=== PATIENT | male | born 1960 | race Caucasian/White ===

== ENCOUNTER 2018-02-17 17:55 | Outpatient (CLI) ==
[2018-02-17 18:21] VITALS: BMI 36.3
== END 2018-02-17 17:56 | disposition home or self-care (01) ==
LOC: AMBL 17:55
PROVIDERS: ATTEND Internal Medicine
DX: T50.905A Adverse effect of unspecified drugs, medicaments and biological substances, initial encounter (principal); M79.605 Pain in left leg; M79.604 Pain in right leg; R07.9 Chest pain, unspecified; F41.9 Anxiety disorder, unspecified; F32.9 Major depressive disorder, single episode, unspecified; G25.81 Restless legs syndrome

== ENCOUNTER 2018-02-17 18:08 | Emergency (ER) ==
--- NOTE | 2018-02-17 18:18 | ED.PDOC ---
General ED Provider: Dr. 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 very upset) Exam Limitations: No limitations Nursing and Triage Documentation Reviewed and Agree: Yes Does patient meet sepsis criteria?: No System Inflammatory Response Syndrome: Not Applicable Sepsis Protocol: For patient's 13 years and over: Temp is 96.8 and below OR 101 and greater Pulse >90 BPM Resp >20/minute Acutely Altered Mental Status Are patient's symptoms suggestive of a new infection, such as: -Pneumonia -Skin, Soft Tissue -Endocarditis -UTI -Bone, Joint Infection -Implantable Device -Acute Abdominal Infection -Wound Infection -Meningitis -Blood Stream Catheter Infection -Unknown Psychological Complaint Exam - Psychiatric Complaint/Exam Patient Complains Of: Present: Depression, Other (the pt has lost his business and is presently homeless as of today). Absent: Suicidal thoughts, Suicidal gestures Onset/Duration: today ,took 2,50mg seraquil [id number](1) [id number](1) motrin 800mg one Symptoms Are: Still present Timing: Constant Episodes Lasting: Minutes Initial Severity: Moderate (he was residing in the [facility]) Current Severity: Mild Character: Present: Depressed, Fearful, Anxious. Absent: Angry, Frustrated Aggravating: Reports: Recent stress (see above). Denies: Alcohol use, Drug use , Medication noncompliance Associated Signs And Symptoms: Reports: Sleep disturbance, Appetite change. Denies: Hostile, Confused, Hallucinating, Paranoid behavior Related History: Reports: Recent stressors (see above). Denies: Suicidal thoughts, Suicidal plan, Suicidal gestures, Homicidal thoughts, Homicidal plan, Homicidal gestures, Prior attempts Completed Suicide Risk Factors: Male, , Unemployed Patient Accompanied By: Family Patient In Custody Of Police: No Social Withdrawal Present: No Social Isolation Present: No Prior Suicide Attempt: No Injury From Prior Suicide Attempt: No Related Surgical History: Reports: None Patient Uncooperative For Exam: No Mood: Present: Depressed, Anxious. Absent: Angry, Guarded, Paranoid, Hallucinating, Manic, Agitated, Hearing voices Appearance: Present: Clean Thought Process: Present: Logical Insight: Present: Good Memory: Intact Judgement: Normal Danger To Others: No Patient Medically Stable For: Psych evaluation Differential Diagnoses: Anxiety, Depression Review of Systems - Review Of Systems Constitutional: Reports: No symptoms Eyes: Reports: No symptoms Ears, Nose, Mouth, Throat: Reports: No symptoms Respiratory: Reports: No symptoms Cardiac: Reports: No symptoms GI: Reports: No symptoms : Reports: No symptoms Musculoskeletal: Reports: No symptoms Skin: Reports: No symptoms Neurological: Reports: Anxiety, Depressed, Emotional problems Endocrine: Reports: No symptoms Hematologic/Lymphatic: Reports: No symptoms All Other Systems: Reviewed and Negative Past Medical History - Past Medical History Previously Healthy: Yes Endocrine: Reports: None Cardiovascular: Reports: None Respiratory: Reports: None Hematological: Reports: None Gastrointestinal: Reports: None Genitourinary: Reports: None Neuro/Psych: Reports: None Musculoskeletal: Reports: None Cancer: Reports: None - Surgical History General Surgical History: Reports: None - Family History Family History: Reports: None Physical Exam - Physical Exam Appearance: Well-appearing, No pain distress, Well-nourished Eyes: CIARAN, EOMI, Conjunctiva clear ENT: Ears normal, Nose normal, Oropharynx normal Respiratory: Airway patent, Breath sounds clear, Breath sounds equal, Respirations nonlabored Cardiovascular: RRR, Pulses normal, No rub, No murmur GI/: Soft, Nontender, No masses, Bowel sounds normal, No Organomegaly Musculoskeletal: Normal strength, ROM intact, No edema, No calf tenderness Skin: Warm, Dry, Normal color Neurological: Sensation intact, Motor intact, Reflexes intact, Cranial nerves intact, Alert, Oriented Psychiatric: Affect appropriate, Mood appropriate Physician Notification - Case Discussed Physician Notified: ethan Time of Notification: 19:00 Admit To: Inpatient Critical Care Note - Critical Care Note Total Time (mins): 0 Course - Course Hematology/Chemistry: 02/17/18 18:24 02/17/18 18:24 Orders, Labs, Meds: Lab Review 02/17/18 02/17/18 02/17/18 18:24 18:24 18:35 WBC 6.84 RBC 4.27 L Hgb 12.7 L Hct 36.6 L MCV 85.7 MCH 29.7 MCHC 34.7 RDW Coeff of Lady 13.2 Plt Count 206 Immature Gran % (Auto) 0.4 Neut % (Auto) 49.0 Lymph % (Auto) 38.3 [place] % (Auto) 9.5 Eos % (Auto) 2.2 Baso % (Auto) 0.6 Immature Gran # (Auto) 0.0 Neut # (Auto) 3.4 Lymph # (Auto) 2.6 [place] # (Auto) 0.7 Eos # (Auto) 0.2 Baso # (Auto) 0.0 Sodium 142 Potassium 3.7 Chloride 109 H Carbon Dioxide 22 Anion Gap 14.7 BUN 26 H Creatinine 1.15 H Estimated GFR (MDRD) 65.00 BUN/Creatinine Ratio 22.60 Glucose 184 H Calcium 8.7 Total Bilirubin 0.2 AST 18 ALT 30 Alkaline Phosphatase 75 Total Protein 6.9 Albumin 3.6 Globulin 3.3 Albumin/Globulin Ratio 1.09 Urine Color Urine Clarity Urine pH Ur Specific [place] Urine Protein Urine Glucose (UA) Urine Ketones Urine Blood Urine Nitrite Urine Bilirubin Urine Urobilinogen Ur Leukocyte Esterase Salicylate Level mg/dL < 5.0 Urine Opiates Screen Negative Ur Oxycodone Screen Negative Urine Methadone Screen Negative Ur Propoxyphene Screen Negative Acetaminophen < 3 L Ur Barbiturates Screen Negative U Tricyclic Antidepress Positive Ur Phencyclidine Scrn Negative Ur Amphetamine Screen Negative U Methamphetamines Scrn Negative U Benzodiazepines Scrn Negative Urine Cocaine Screen Negative U Cannabinoids Screen Negative Plasma/Serum Alcohol < 10.0 02/17/18 18:35 WBC RBC Hgb Hct MCV MCH MCHC RDW Coeff of Lady Plt Count Immature Gran % (Auto) Neut % (Auto) Lymph % (Auto) [place] % (Auto) Eos % (Auto) Baso % (Auto) Immature Gran # (Auto) Neut # (Auto) Lymph # (Auto) [place] # (Auto) Eos # (Auto) Baso # (Auto) Sodium Potassium Chloride Carbon Dioxide Anion Gap BUN Creatinine Estimated GFR (MDRD) BUN/Creatinine Ratio Glucose Calcium Total Bilirubin AST ALT Alkaline Phosphatase Total Protein Albumin Globulin Albumin/Globulin Ratio Urine Color Yellow Urine Clarity Clear Urine pH 5.5 Ur Specific [place] 1.025 Urine Protein Negative Urine Glucose (UA) Negative Urine Ketones Negative Urine Blood Negative Urine Nitrite Negative Urine Bilirubin 1+ Urine Urobilinogen 0.2 Ur Leukocyte Esterase Negative Salicylate Level mg/dL Urine Opiates Screen Ur Oxycodone Screen Urine Methadone Screen Ur Propoxyphene Screen Acetaminophen Ur Barbiturates Screen U Tricyclic Antidepress Ur Phencyclidine Scrn Ur Amphetamine Screen U Methamphetamines Scrn U Benzodiazepines Scrn Urine Cocaine Screen U Cannabinoids Screen Plasma/Serum Alcohol Orders Category Date Time Status EKG-(ED ONLY) Stat CARDIO 02/17/18 18:13 Completed ED LAY HEALTH ADVOCATE APPLIED ONCE EMERGENCY 02/17/18 18:13 Active ACETAMINOPHEN Stat LAB 02/17/18 18:24 Completed BLOOD ALCOHOL Stat LAB 02/17/18 18:24 Completed CBC W/ AUTO DIFF Stat LAB 02/17/18 18:24 Completed COMPREHENSIVE METABOLIC PANEL Stat LAB 02/17/18 18:24 Completed DRUG SCREEN, URINE, RAPID Stat LAB 02/17/18 18:35 Completed SALICYLATE Stat LAB 02/17/18 18:24 Completed URINALYSIS C & S IF INDICATED Stat LAB 02/17/18 18:35 Completed Vital Signs: Temp Pulse Resp BP Pulse Ox 02/17/18 19:58 86 18 117/73 96 02/17/18 18:13 97.8 F 87 16 128/78 94 L Departure - Departure Time of Disposition: 19:00 Disposition: HOME SELF-CARE Discharge Problem: Depression (emotion) Instructions: Depression (ED), Anxiety (ED) Condition: Good Pt referred to PMD for follow-up: Yes IPMP verified?: No Additional Instructions: Please call your Family Physician as soon as possible to schedule a follow-up appointment. Allergies/Adverse Reactions: Allergies No Known Allergies Allergy (Unverified 02/17/18 19:09) Home Medications: Ambulatory Orders 1 [Unobtainable] 02/17/18 Disposition Discussed With: Patient
[2018-02-17 18:21] VITALS: TEMP 97.8; BMI 36.3
[2018-02-17 19:59] VITALS: BP 117/73
== END 2018-02-17 21:22 | disposition home or self-care (01) ==
LOC: ED 18:08
DX: F41.9 Anxiety disorder, unspecified (principal); F32.9 Major depressive disorder, single episode, unspecified; T43.591A Poisoning by other antipsychotics and neuroleptics, accidental (unintentional), initial encounter; T42.6X1A Poisoning by other antiepileptic and sedative-hypnotic drugs, accidental (unintentional), initial encounter; T39.311A Poisoning by propionic acid derivatives, accidental (unintentional), initial encounter
CPT/HCPCS: 36415; 80053; 80306; 80307; 81001; 85025; 93005; 93010; 99283